=== PATIENT | female | born 1995 | race Caucasian/White ===

== ENCOUNTER 2019-05-11 19:25 | Emergency (ER) | payer MEDICAID, OTHER ==
[~2019-05-11] VITALS: Ht 167.6 cm; Wt 56.7 kg
[2019-05-11 19:36] VITALS: BP 134/95
== END 2019-05-11 21:40 | disposition home or self-care (01) ==
LOC: ER 19:30
DX: S29.011A Strain of muscle and tendon of front wall of thorax, initial encounter (principal); Z98.890 Other specified postprocedural states; X58.XXXA Exposure to other specified factors, initial encounter; Y93.89 Activity, other specified; Y92.89 Other specified places as the place of occurrence of the external cause; Y99.8 Other external cause status
CPT/HCPCS: 71100-TC; 84703-TC